=== PATIENT | male | born 1955 | race Caucasian/White ===

== ENCOUNTER 2022-03-25 12:21 | Observation (INO) | payer MEDICARE, SELFPAY ==
[2022-03-25] VITALS (10 sets, daily range): BP systolic 110–175; BP diastolic 51–87; PULSE 55–81; RESP 15–16; TEMP 36.6–37.1; O2SAT 95–99; BMI 27.2
--- NOTE | 2022-03-25 12:38 | W.ED.NEUROSD ---
HPI - Neuro Symptoms/Deficit General: Chief Complaint: Neuro Symptoms/Deficit Stated Complaint: Numbness/weakness in left arm Time Seen by Provider: 03/25/22 12:38 History of Present Illness: Mr. Yun is a 66-year-old gentleman without significant past medical history who presents to the emergency department due to left arm weakness and sensory changes. He was working yesterday and reached over to open a toolbox at approximately 4 PM when he realized that his fingers were not functioning like he expected. Additionally he had onset of a tingling/asleep feeling that starts about mid elbow and goes down towards the hands. Since that time which has persisted. He denies similar episodes in the past. No associated headache or neck pain. No other neurologic deficits that he appreciates. Intensity symptoms is moderate to severe. No other specific changes in health, exacerbating, or alleviating factors identified. Onset (ago): hour(s) Location: left arm History of same: No Severity: moderate Quality: numb, tingling and constant On Anticoagulants: No Associated symptoms: Reports weakness Review of Systems General: Reports: 10 or more systems reviewed and unremarkable except in HPI and below PFSH ED PFSH: Medical History (Updated 03/29/22 @ 13:29 by GITA Gee) Glaucoma Tibia/fibula fracture Family History Mother Lung cancer Social History Smoking and tobacco status: former smoker Additional social history: Very remote history of light smoking Physical Exam Const: COMMON NORMALS: patient oriented x3 and alert GENERAL APPEARANCE: cooperative and well developed HENMT: COMMON NORMALS: normocephalic and atraumatic HEAD & SCALP: normocephalic and atraumatic Eye: COMMON NORMALS: conjunctivae normal CONJUNCTIVA: Yes conjunctivae normal SCLERA: sclerae normal Neck/C-Spine: COMMON NORMALS: supple GENERAL: Yes trachea midline Resp: COMMON NORMALS: normal respiratory effort EFFORT & INSPECTION: Yes able to speak in complete sentences Cardio: COMMON NORMALS: regular rate and regular rhythm RATE: regular rate RHYTHM: regular rhythm GI: COMMON NORMALS: Soft to palpation PALPATION: Yes Soft to palpation and No Tenderness to palpation present (GI) PERCUSSION: normal to percussion Extremity: GENERAL: Yes normal exam except as noted and No edema Neuro: COMMON NORMALS: patient oriented x3, CN's II-XII intact bilaterally, moves all extremities and no focal motor deficits SENSORIUM/ORIENTATION: Yes alert and No Orientation impaired SENSORY EXAM: Yes extremities (Left upper extremity decreased sensation to light touch) Psych: COMMON NORMALS: mental status grossly normal and Normal thought process present THOUGHT PROCESS: Normal thought process present Course ED course: - Patient was seen and evaluated by me at bedside - Patient placed on cardiac monitors, IV access obtained - Initial evaluation notable for exam as above. - Labs and xrays personally interpreted by me. EKG notable for sinus bradycardia with no STEMI. - Patient outside tPA window - Labs notable for no acute hematologic or metabolic abnormalities to explain patient's symptoms. - Imaging notable for no lobar consolidation or pneumothorax. No acute abnormality identified on CT head without contrast - Upon serial reexamination after treatment the patient was similar - Based on patient history, evaluation, and testing as interpreted the most likely cause of the patient's condition is stroke symptoms - The results of ED evaluation were discussed with the patient including plan for admission due to requirement for level of care not available if discharged to prevent significant worsening/deterioration. - Admitting service was contacted and Dr Kellogg with the hospitalist service agreed to admit the patient - Patient was admitted without further deterioration or significant events. Note: Click bubbles or prepopulated gaming in note writing are used for assistance with data collection and billing and are inherently more limited than narrative and other text portions of this note. Please use narrative for additional clinical history and defer to narrative/free test for any case of contradictory information. If information appears in only free text or click bubble it should be considered present or absent as reported. Please contact note job specification writer for clarifications of clinical information or contradictory information. MDM is a brief summary, contradictory or erroneous seeming information should be clarified and full note should be reviewed. Vital Signs: Vital signs: Vital Signs Temperature 98.4 F 03/26/22 12:02 Pulse Rate 61 03/26/22 12:02 Respiratory Rate 17 03/26/22 12:02 Blood Pressure 124/81 03/26/22 12:02 Pulse Oximetry 95 03/26/22 12:02 MDM - Neuro Symptoms/Deficit Medical Decision Making 66-year-old gentleman presenting with left upper extremity sensory changes and weakness outside of tPA window. No obvious cause of symptoms identified on ED evaluation. Admitted for further stroke evaluation. Medical Records I reviewed the patient's medical records. Lab Data I reviewed the patient's lab results. : 03/25/22 14:11 03/25/22 14:[address] 03/25/22 12:42 IMPRESSION: No acute intracranial abnormality. Chest X-Ray 03/25/22 13:19 IMPRESSION: No acute findings. Duplex Scan Upper Extremity Artery 03/25/22 13:19 IMPRESSION: No acute findings. Chest CT 03/25/22 16:04 IMPRESSION: 1. Negative CT chest. No acute abnormality. 2. Small incidental right lower lobe subpleural pulmonary nodule. 3. For patients at low risk (minimal or absent history of smoking and of other known risk factors), no routine follow-up is indicated. For patients at high risk (history of smoking or of other known risk factors), consider optional CT Chest at 12 months. (Reference: Elaine) REFERENCES: Elaine Amaya, et al. Guidelines for Management of Incidental Pulmonary Nodules Detected on CT Images: From the Fleischner Society 2017. Radiology. 2017;284(1):228-243. Head MRI 03/25/22 16:04 IMPRESSION: 1. No acute intracranial abnormality. 2. Diffuse paranasal sinus disease. Head/Neck CTA 03/25/22 16:04 IMPRESSION: No large vessel stenosis or occlusion. IMPRESSION: No stenosis or occlusion. REFERENCES: NASCET CRITERIA. The degree of internal carotid artery stenosis is based on NASCET criteria. Normal is no stenosis. Mild is less than 50% stenosis. Moderate is 50-69% stenosis. Severe is 70% to 99% stenosis. Total occlusion is no detectable patent lumen. Laboratory Results WBC 8.2 10^3/uL (4.0-10.0) 03/25/22 14:11 RBC 5.17 10^6/uL (4.1-5.3) 03/25/22 14:11 Hgb 16.0 g/dL (11.7-16.6) 03/25/22 14:11 Hct 48.8 % (42.0-52.0) 03/25/22 14:11 MCV 94.4 fl (80-94) H 03/25/22 14:11 MCH 30.9 pg (28.0-34.0) 03/25/22 14:11 MCHC 32.8 g/dL (30.0-36.0) 03/25/22 14:11 RDW 12.7 % (12.1-15.1) 03/25/22 14:11 Plt Count 251 10^3/cmm (130-400) 03/25/22 14:11 MPV 9.8 fL (7.4-10.4) 03/25/22 14:11 Neut % (Auto) 63.4 % 03/25/22 14:11 Lymph % (Auto) 24.4 % 03/25/22 14:11 [place] % (Auto) 8.1 % 03/25/22 14:11 Eos % (Auto) 3.2 % 03/25/22 14:11 Baso % (Auto) 0.7 % 03/25/22 14:11 Neut # (Auto) 5.16 10^3/uL (1.8-7.7) 03/25/22 14:11 Lymph # (Auto) 2.0 10^3/uL (0.8-4.8) 03/25/22 14:11 [place] # (Auto) 0.7 10^3/uL (0.2-0.9) 03/25/22 14:11 Eos # (Auto) 0.3 10^3/uL (0.0-0.8) 03/25/22 14:11 Baso # (Auto) 0.1 10^3/uL (0.0-0.1) 03/25/22 14:11 Nucleated RBC % (auto) 0 % 03/25/22 14:11 Nucleated RBCs # 0.0 /100WBC 03/25/22 14:11 Sodium 140 mmol/L (136-145) 03/25/22 14:11 Potassium 4.6 mmol/L (3.5-5.1) 03/25/22 14:11 Chloride 105 mmol/L (98-107) 03/25/22 14:11 Carbon Dioxide 26 mmol/L (22-29) 03/25/22 14:11 Anion Gap 13.6 (5-19) 03/25/22 14:11 BUN 13 mg/dL (8-23) 03/25/22 14:11 Creatinine 0.7 mg/dL (0.7-1.2) 03/25/22 14:11 GFR Calculation 112.5 mL/min (90-130) 03/25/22 14:11 Glucose 103 mg/dL (65-115) 03/25/22 14:11 Estimat Average Glucose 108 03/25/22 14:11 Hemoglobin A1c 5.4 % (4.0-6.0) 03/25/22 14:11 Calculated Osmolality 290 mOsm/kg (285-295) 03/25/22 14:11 Calcium 9.3 mg/dL (8.5-10.5) 03/25/22 14:11 Total Bilirubin 0.8 mg/dL (0.15-1.2) 03/25/22 14:11 AST 12 U/L (0-40) 03/25/22 14:11 ALT 10 U/L (0-41) 03/25/22 14:11 Alkaline Phosphatase 125 IU/L (40-130) 03/25/22 14:11 NT-Pro-B Natriuret Pep 29 pg/mL (0-125) 03/25/22 14:11 Total Protein 7.4 g/dL (6.6-8.7) 03/25/22 14:11 Albumin 4.5 g/dL (3.5-5.2) 03/25/22 14:11 Globulin 2.9 g/dL (1.3-4.6) 03/25/22 14:11 Triglycerides 53 mg/dL (0-150) 03/25/22 14:11 Cholesterol 171 mg/dL (0-200) 03/25/22 14:11 LDL Cholesterol, Calc 117 mg/dL (50-129) 03/25/22 14:11 HDL Cholesterol 43 mg/dL (60-100) L 03/25/22 14:11 LDL/HDL Ratio 2.72 RATIO (0.00-3.22) 03/25/22 14:11 Cholesterol/HDL Ratio 3.98 mg/dL (1.0-5.00) 03/25/22 14:11 TSH 1.26 uIU/mL (0.27-4.20) 03/25/22 14:11 Discharge Plan Discharge Patient Disposition: Placed in Observation Admit Provider: Sunil Kellogg Clinical Impression: Stroke-like symptom Discharge Diet: Cardiac Discharge Activity: Increase activity as tolerated Coding Level of Care Code ED Planner Intern for Chg Fwd Exam Comprehensive
--- NOTE | 2022-03-25 12:42 | CTR_ITS ---
PROCEDURE INFORMATION: Exam: CT Head Without Contrast Exam date and time: 03/25/2022 1:11 PM Age: 66 years old Clinical indication: Weakness, extremity; Left; Additional info: Stroke like symptoms, L hand/arm sensory changes/weakness TECHNIQUE: Imaging protocol: Computed tomography of the head without contrast. Radiation optimization: All CT scans at this facility use at least one of these dose optimization techniques: automated exposure control; mA and/or kV adjustment per patient size (includes targeted exams where dose is matched to clinical indication); or iterative reconstruction. COMPARISON: No relevant prior studies available. RADIATION DOSE METRICS: Total DLP (mGy-cm): 938.56 FINDINGS: Brain: No hemorrhage. No edema. No significant white matter disease. No mass effect. Cerebral ventricles: No ventriculomegaly. Paranasal sinuses: Opacified maxillary and frontal sinuses and partially opacified ethmoid sinuses. Mastoid air cells: Visualized mastoid air cells are well aerated. Bones/joints: Unremarkable. No acute fracture. Soft tissues: Unremarkable. CT/CT head wo con* [id number] IMPRESSION: No acute intracranial abnormality.
--- NOTE | 2022-03-25 13:19 | USR_ITS ---
PROCEDURE INFORMATION: Exam: US Duplex Left Upper Extremity Arteries Exam date and time: 03/25/2022 2:16 PM Age: 66 years old Clinical indication: Pain; Other: Weakness and numbness; Arm, upper; Left; Additional info: Weakness, sensory changes, color difference, eval ischemia TECHNIQUE: Imaging protocol: Left Real-time ultrasound scan of the arteries of the left upper extremity with 2-D meeks scale, color Doppler flow and spectral waveform analysis. COMPARISON: No relevant prior studies available. FINDINGS: Left subclavian artery: No occlusion or significant stenosis. Normal waveform. Left axillary artery: No occlusion or significant stenosis. Normal waveform. Left brachial artery: No occlusion or significant stenosis. Normal waveform. Left radial artery: No occlusion or significant stenosis. Normal waveform. Left ulnar artery: No occlusion or significant stenosis. Normal waveform. Soft tissues: Unremarkable. US/[place] [id number] IMPRESSION: No acute findings.
--- NOTE | 2022-03-25 13:19 | XRR_ITS ---
PROCEDURE INFORMATION: Exam: XR Chest Exam date and time: 03/25/2022 1:42 PM Age: 66 years old Clinical indication: Dyspnea and other: Weakness; Additional info: Arm numbness/weakness TECHNIQUE: Imaging protocol: XR of the chest. Views: 1 view. COMPARISON: No relevant prior studies available. FINDINGS: Lungs: Linear scarring at the left lung base. No consolidation. Pleural spaces: No pleural effusion. No pneumothorax. Heart/Mediastinum: No cardiomegaly. Bones/joints: Visualized osseous structures are intact. XR/XR chest 1V portable [id number] IMPRESSION: No acute findings.
--- NOTE | 2022-03-25 13:20 | ECG_ITS ---
[facility] Test Date: 2022-03-25 Pat Name: Yosef Yun Department: Room: Gender: Male [employer] Project Manager: : 1955 Requested By: Joey Wolff Order Number: [id number] [place] MD: Lili Crook M.D. Measurements Intervals [place] Rate: 54 P: 16 SD: 157 QRS: 2 QRSD: 94 T: 38 QT: 419 QTc: 399 Interpretive Statements SINUS BRADYCARDIA No previous ECG available for comparison Electronically Signed On 03-26-2022 13:27:11 CDT by Lili Crook M.D. [id number]
[2022-03-25 14:22] LABS: Basophils # 0.1 10^3/uL (0.0-0.1); Basophils % 0.7 %; Eosinophils # 0.3 10^3/uL (0.0-0.8); Eosinophils % 3.2 %; Hematocrit 48.8 % (42.0-52.0); Lymphocytes % 24.4 %; Mean Corpuscular HGB Conc 32.8 g/dL (30.0-36.0); Mean Corpuscular Hemoglobin 30.9 pg (28.0-34.0); Mean Corpuscular Volume 94.4 fl (80-94); Mean Platelet Volume 9.8 fL (7.4-10.4); Monocytes # 0.7 10^3/uL (0.2-0.9); Monocytes % 8.1 %; Neutrophils # 5.16 10^3/uL (1.8-7.7); Neutrophils % 63.4 %; Nucleated Red Blood Cells % 0 %; Platelet Count 251 10^3/cmm (130-400); Red Blood Count 5.17 10^6/uL (4.1-5.3); Red Cell Distribution Width 12.7 % (12.1-15.1); White Blood Count 8.2 10^3/uL (4.0-10.0)
[2022-03-25 14:53] LABS: Alanine Aminotransferase 10 U/L (0-41); Albumin Level 4.5 g/dL (3.5-5.2); Alkaline Phosphatase 125 IU/L (40-130); Anion Gap 13.6 (5-19); Aspartate Amino Transferase 12 U/L (0-40); Blood Urea Nitrogen 13 mg/dL (8-23); Calcium 9.3 mg/dL (8.5-10.5); Carbon Dioxide 26 mmol/L (22-29); Chloride 105 mmol/L (98-107); Globulin 2.9 g/dL (1.3-4.6); Glomerular Filtration Rate 112.5 mL/min (90-130); Glucose 103 mg/dL (65-115); NT Pro B Type Natriuretic Pept 29 pg/mL (0-125); Osmolality Calculated 290 mOsm/kg (285-295); Potassium 4.6 mmol/L (3.5-5.1); Sodium 140 mmol/L (136-145); Thyroid Stimulating Hormone 1.26 uIU/mL (0.27-4.20); Total Bilirubin 0.8 mg/dL (0.15-1.2); Total Protein 7.4 g/dL (6.6-8.7)
--- NOTE | 2022-03-25 15:37 | P.HP_ITS ---
Providers/Chief Complaint Admitting Physician: Sunil Kellogg Chief Complaint: Numbness/weakness in left arm History of Present Illness Yosef Yun is a 66 year old male with a past medical history significant for glaucoma who presents to the emergency department with strokelike symptoms. Patient reports he was in his usual state of health until yesterday when he developed left hand weakness and tingling. States that he was working on a car and found that his left hand was not working as it should. He endorses weakness, numbness, and tingling sensation in his left hand. He denies prior episodes of this. He denies other focal areas of weakness or sensation changes. He denies slurred speech. Denies dysarthria. Denies facial droop. Denies prior history of stroke or TIA. Denies history of hypertension, hyperlipidemia, or type 2 diabetes mellitus. Denies family history of stroke. He reports that symptoms have improved somewhat since then but his weakness and his left hand is still mildly present. He says he does have some numbness present as well. Patient reports that his blood pressure was markedly different in his left upper versus right upper arms at the urgent care. He also states that the coloration in his left arm is markedly paler in the coloration in his right arm. States that this is new for him. Review of Systems Narrative: A complete review of systems was obtained and is negative except as stated in HPI. Medications/Allergies Home Medications Medication Instructions Recorded Confirmed Last Taken Type latanoprost 0.005 % eye drops 1 drp OPHTHALMIC (EYE) BEDTIME 03/25/22 03/25/22 03/24/22 History timolol maleate 0.5 % eye drops 1 drp OPHTHALMIC (EYE) BID 03/25/22 03/25/22 03/25/22 History Allergies Allergy/AdvReac Type Severity Reaction Status Date / Time ampicillin Allergy ADR-Itching Verified 03/25/22 12:30 PFSH Acute PFSH: Medical History (Updated 03/25/22 @ 15:58 by Sunil Kellogg MD) Glaucoma Tibia/fibula fracture Family History (Updated 03/25/22 @ 15:52 by Sunil Kellogg MD) Mother Lung cancer Social History Smoking and tobacco status: former smoker Additional social history: Very remote history of light smoking Vitals/I&O/Wt Last Vital Signs Temp 97.8 F 03/25/22 12:26 Pulse 55 L 03/25/22 12:26 Resp 16 03/25/22 12:26 BP 175/51 03/25/22 12:26 Pulse Ox 97 03/25/22 12:26 Weight last 48 hrs Weight 96.162 kg Physical Exam Narrative: General: Patient is awake and alert. Head: Normocephalic. Atraumatic. EOM intact. Neck: No JVD. Cardiovascular: RRR. No gallops. No murmurs. No peripheral edema. Lungs: Clear to auscultation, no use of accessory muscles, no crackles or wheezes. Skin: No jaundice. No rashes. Abdomen: Normal bowel sounds, abdomen soft and nontender. Genito Urinary: Genital exam not performed since complaints not related. Rectal: Rectal exam not performed since no symptoms indicated blood loss. Extremeties: No cyanosis or clubbing. Musculoskeletal: LUE 4+/5 strenght. Other extremities 5/5 strength, normal range of motion, no swollen or erythematous joints. Neurological: Moves all 4 extremities. No myoclonus. Data : 03/25/22 14:11 03/25/22 14:11 A&P Assessment and plan (1) Stroke-like symptom: Patient presents with focal neurological deficits concerning for TIA versus CVA versus nerve impingement Plain head CT negative for acute hemorrhage. Telemetry monitoring to evaluate for atrial fibrillation. MRI head CTA head/neck Neurochecks Aspiration and fall precautions Stroke education PT/OT/ST A1c and lipid for risk ratification Start aspirin and Plavix Start high intensity statin Transthoracic echocardiogram ordered Status: Acute (2) Abnormal blood pressure: Physical exam w/ pale left upper extremity of unclear significance. Reported asymmetric blood pressure Pulses present in LUE CT chest w/ IV contrast Start IVF due to contrast exposure Status: Acute (3) Glaucoma: Continue home eyedrops Status: Acute Plan DVT prophylaxis: Lovenox Attestations Medical Necessity Statement*: Patient's presents with strokelike symptoms with hospitalization not expected to cross 2 midnights. Coding Level of Care Code Acute Still Worker Helper for David Godwin Diagnoses Stroke-like symptom R29.90 Glaucoma H40.9 Abnormal blood pressure
--- NOTE | 2022-03-25 16:04 | USCV_ITS ---
Yosef Yun Age: 66 Gender: M : 1955 Exam Date: 03/25/2022 16:15 Ordering Phys: Sunil Kellogg MD Technologist: DANUTA [place] [facility] [place]ication: ECHO WITH BUBBLES TO EVALUATE FOR PFO BP: 123 / 84 HR: 55 Rhythm: Sinus Technical Quality: Adequate MEASUREMENTS (Male / Female) Normal Values 2D ECHO LV Diastolic Diameter PLAX 5.5 cm 4.2 - 5.9 / 3.9 - 5.3 cm LV Systolic Diameter PLAX 4.0 cm IVS Diastolic Thickness 1.2 cm 0.6 - 1.0 / 0.6 - 0.9 cm IVS Systolic Thickness 2.0 cm LVPW Diastolic Thickness 1.3 cm 0.6 - 1.0 / 0.6 - 0.9 cm LVPW Systolic Thickness 1.6 cm LVOT Diameter 2.0 cm LV Ejection Fraction 2D Teich 51.2 % LV Ejection Fraction MOD 2C 55.8 % LV Ejection Fraction 2C AL 55.8 % LA Diameter 3.2 cm LA Width 3.5 cm LA Height 5.1 cm RA Width 4.0 cm RA Height 4.3 cm Aorta at Sinotubular Diameter 2.3 cm IVC Diameter 1.6 cm M-MODE Aortic Annulus Diameter 3.4 cm LA Ao Ratio MM 0.9 MV E Point Septal Separation 0.6 cm DOPPLER AV Peak Velocity 91.3 cm/s LVOT Peak Velocity 75.0 cm/s AV Area Cont Eq vti 2.6 cm squared AV Area Cont Eq pk 2.6 cm squared MV Peak Velocity 89.0 cm/s MV Area PHT 3.9 cm squared Mitral E to A Ratio 1.1 MV E' Velocity 41.5 cm/s Mitral E to MV E' Ratio 6.6 Mitral E to LV E' Lateral Ratio 5.9 Mitral E to LV E' Septal Ratio 7.5 TR Peak Velocity 151.0 cm/s TR Peak Gradient 9.1 mmHg TR Mean Velocity 112.2 cm/s TR Mean Gradient 5.4 mmHg TR Velocity Time Integral 42.1 cm TV Peak E Velocity 45.0 cm/s Right Atrial Pressure 3.0 mmHg Pulmonary Artery Systolic Pressu 12.1 mmHg PV Peak Velocity 64.0 cm/s RV Acceleration Time 0.1 s RV Ejection Time 0.4 s RV AcT/ET 0.3 FINDINGS Left Ventricle Normal left ventricular size, systolic function and wall thickness, with no regional wall motion abnormalities. Left ventricular ejection fraction is estimated at 55-60 %. Normal diastolic function. Right Ventricle Normal right ventricular size and systolic function. RVSP could not be calculated due to incomplete tricuspid regurgitation velocity profile. Right Atrium Normal right atrial size. Left Atrium Normal left atrial size. No evidence of intracardiac shunt by agitated saline or bubble study. Mitral Valve Structurally normal mitral valve. No mitral valve stenosis. No mitral valve regurgitation. Aortic Valve Structurally normal trileaflet aortic valve. No aortic valve stenosis. No aortic valve regurgitation. Tricuspid Valve Structurally normal tricuspid valve. No tricuspid valve stenosis. Trace tricuspid valve regurgitation. Pulmonic Valve Structurally normal pulmonic valve. No pulmonary valve stenosis. Trace pulmonary valve regurgitation. Pericardium No pericardial effusion. Aorta Normal size aortic root and proximal ascending aorta. Normal- sized inferior vena cava. CONCLUSIONS 1. Normal left ventricular size, systolic function and wall thickness, with no regional wall motion abnormalities. Left ventricular ejection fraction is estimated at 55-60 %. Normal diastolic function. 2. No evidence of intracardiac shunt by agitated saline or bubble study. 3. No significant valvular abnormality. 4. No prior similar studies to compare. Lili Crook MD (Electronically Signed) Final Date: 26 Mar 2022 12:51 S
--- NOTE | 2022-03-25 16:04 | MRR_ITS ---
PROCEDURE INFORMATION: Exam: MR Head Without Contrast Exam date and time: 03/25/2022 7:33 PM Age: 66 years old Clinical indication: Weakness, extremity; Left; Additional info: Stroke like symptoms, left arm weakness, aching and loss of use of fingers TECHNIQUE: Imaging protocol: MR of the head without contrast. COMPARISON: CT head wo con* [id number] 03/25/2022 1:11 PM FINDINGS: Brain: Click cerebral moderate no intracranial hemorrhage. No restricted diffusion in the brain. No significant white matter lesion. Young matter and white matter differentiation is unremarkable. No mass effect. No midline shift. No susceptibility artifact within the brain parenchyma. Cerebral ventricles: Normal. No ventriculomegaly. Bones/joints: Unremarkable. Paranasal sinuses: Diffuse mucosal thickening and fluid throughout the paranasal sinuses. Mastoid air cells: Normal as visualized. No mastoid effusion. Orbital cavities: Unremarkable. Soft tissues: Unremarkable. MR/MR head wo con* [id number] IMPRESSION: 1. No acute intracranial abnormality. 2. Diffuse paranasal sinus disease.
--- NOTE | 2022-03-25 16:04 | CTR_ITS ---
PROCEDURE INFORMATION: Exam: CT Angiography Head With Contrast, Arteriography Exam date and time: 03/25/2022 4:52 PM Age: 66 years old Clinical indication: Patient HX: C/O lue weakness; Additional info: Stroke symptoms in lue, CT angiogram cervical and intracranial vessels TECHNIQUE: Imaging protocol: Computed tomography angiography of the head with contrast. Exam focused on the arteries. 3D rendering (Not supervised by radiologist): MIP and/or 3D reconstructed images were created by the technologist. Radiation optimization: All CT scans at this facility use at least one of these dose optimization techniques: automated exposure control; mA and/or kV adjustment per patient size (includes targeted exams where dose is matched to clinical indication); or iterative reconstruction. Contrast material: OMNI 300; Contrast volume: 95 ml; Contrast route: INTRAVENOUS (IV); COMPARISON: CT head wo con* [id number] 03/25/2022 1:11 PM RADIATION DOSE METRICS: Total DLP (mGy-cm): 2261.98 FINDINGS: ANTERIOR CIRCULATION: Right internal carotid artery: Unremarkable. Intracranial segment is patent with no significant stenosis. No aneurysm. Right middle cerebral artery: Unremarkable. No occlusion or significant stenosis. No aneurysm. Right anterior cerebral artery: Unremarkable. No occlusion or significant stenosis. No aneurysm. Left internal carotid artery: Unremarkable. Intracranial segment is patent with no significant stenosis. No aneurysm. Left middle cerebral artery: Unremarkable. No occlusion or significant stenosis. No aneurysm. Left anterior cerebral artery: Unremarkable. No occlusion or significant stenosis. No aneurysm. POSTERIOR CIRCULATION: Right vertebral artery: Unremarkable. No occlusion or significant stenosis. No aneurysm. Left vertebral artery: Unremarkable. No occlusion or significant stenosis. No aneurysm. Basilar artery: Unremarkable. No occlusion or significant stenosis. No aneurysm. Right posterior cerebral artery: Unremarkable. No occlusion or significant stenosis. No aneurysm. Left posterior cerebral artery: Unremarkable. No occlusion or significant stenosis. No aneurysm. Brain: No definite mass, mass effect, or midline shift. Cerebral ventricles: No ventriculomegaly. Bones/joints: Unremarkable. No acute fracture. Soft tissues: Unremarkable. PROCEDURE INFORMATION: Exam: CT Angiography Neck With Contrast Exam date and time: 03/25/2022 4:52 PM Age: 66 years old Clinical indication: Patient HX: C/O lue weakness; Additional info: Stroke symptoms in lue, CT angiogram cervical and intracranial vessels TECHNIQUE: Imaging protocol: Computed tomography angiography of the neck with contrast. 3D rendering (Not supervised by radiologist): MIP and/or 3D reconstructed images were created by the technologist. Radiation optimization: All CT scans at this facility use at least one of these dose optimization techniques: automated exposure control; mA and/or kV adjustment per patient size (includes targeted exams where dose is matched to clinical indication); or iterative reconstruction. Contrast material: OMNI 300; Contrast volume: 95 ml; Contrast route: INTRAVENOUS (IV); COMPARISON: CT head wo con* [id number] 03/25/2022 1:11 PM RADIATION DOSE METRICS: Total DLP (mGy-cm): 2261.98 FINDINGS: Right common carotid artery: No stenosis. No dissection or occlusion. Right internal carotid artery: No stenosis of the extracranial segment. No dissection or occlusion. Right external carotid artery: No occlusion or stenosis of the origin. Left common carotid artery: No stenosis. No dissection or occlusion. Left internal carotid artery: No stenosis of the extracranial segment. No dissection or occlusion. Left external carotid artery: No occlusion or stenosis of the origin. Right vertebral artery: No stenosis. No dissection or occlusion. Left vertebral artery: No stenosis. No dissection or occlusion. Soft tissues: Normal. No significant soft tissue swelling. Bones/joints: No acute fracture. CT/CT angio headneck* [id number] IMPRESSION: No large vessel stenosis or occlusion. IMPRESSION: No stenosis or occlusion. REFERENCES: NASCET CRITERIA. The degree of internal carotid artery stenosis is based on NASCET criteria. Normal is no stenosis. Mild is less than 50% stenosis. Moderate is 50-69% stenosis. Severe is 70% to 99% stenosis. Total occlusion is no detectable patent lumen.
--- NOTE | 2022-03-25 16:04 | CTR_ITS ---
PROCEDURE INFORMATION: Exam: CT Chest With Contrast; Diagnostic Exam date and time: 03/25/2022 4:56 PM Age: 66 years old Clinical indication: Patient HX: Lue weakness and unequal BP; Additional info: Unequal blood pressure in upper extremities TECHNIQUE: Imaging protocol: Diagnostic computed tomography of the chest with contrast. Radiation optimization: All CT scans at this facility use at least one of these dose optimization techniques: automated exposure control; mA and/or kV adjustment per patient size (includes targeted exams where dose is matched to clinical indication); or iterative reconstruction. Contrast material: OMNI 300; Contrast volume: 95 ml; Contrast route: INTRAVENOUS (IV); COMPARISON: CR (CHEST, ) 03/25/2022 1:42 PM RADIATION DOSE METRICS: Total DLP (mGy-cm): 787.01 FINDINGS: Lungs: 4 mm noncalcified posterolateral right lower lobe subpleural pulmonary nodule with triangular-shaped on axial series 2, image 46. Negative for space consolidation. Negative for endobronchial obstruction. No peripheral honeycombing. No bronchiectasis. Pleural spaces: Unremarkable. No pneumothorax. No pleural effusion. Heart: Unremarkable. No cardiomegaly. No pericardial effusion. Lymph nodes: Unremarkable. No enlarged lymph nodes. Vasculature: Unremarkable. No aortic aneurysm. No stenosis in the great vessel origins. Bones/joints: Unremarkable. No acute fracture. Soft tissues: Unremarkable. CT/CT chest w con* [id number] IMPRESSION: 1. Negative CT chest. No acute abnormality. 2. Small incidental right lower lobe subpleural pulmonary nodule. 3. For patients at low risk (minimal or absent history of smoking and of other known risk factors), no routine follow-up is indicated. For patients at high risk (history of smoking or of other known risk factors), consider optional CT Chest at 12 months. (Reference: Elaine) REFERENCES: Elaine H, et al. Guidelines for Management of Incidental Pulmonary Nodules Detected on CT Images: From the Fleischner Society 2017. Radiology. 2017;284(1):228-243.
[2022-03-25] MEDS: iohexol 300 mg/mL 100 mL Btl IV (16:57)
[2022-03-25 18:07] LABS: Chol HDL Ratio 3.98 mg/dL (1.0-5.00); Cholesterol 171 mg/dL (0-200); HDL Cholesterol 43 mg/dL (60-100); LDL Cholesterol Calculated 117 mg/dL (50-129); LDL HDL Ratio 2.72 RATIO (0.00-3.22); Triglycerides 53 mg/dL (0-150)
[2022-03-25] MEDS: aspirin 81 mg EC Tablet PO (18:20)
[2022-03-25] MEDS: clopidogrel 300 mg Tablet PO (18:20)
[2022-03-25] MEDS: dextrose 5%-sod chloride 0.45% 1,000 ML 100 ML IV (18:21)
[2022-03-25] MEDS: timolol 0.5% Op Soln 5 mL Btl 1 DROP EYE-BOTH (18:56)
[2022-03-25 20:15] LABS: Estmated Average Glucose 108; Hemoglobin A1C 5.4 % (4.0-6.0)
[2022-03-25] MEDS: enoxaparin 40 mg/0.4 mL Syringe SUBCUT (21:24)
[2022-03-25] MEDS: atorvastatin 40 mg Tablet PO (21:24)
[2022-03-25] MEDS: latanoprost 0.005% Op Soln 2.5 mL Btl 1 DROP EYE-BOTH (21:25)
[2022-03-26] MEDS: dextrose 5%-sod chloride 0.45% 1,000 ML 100 ML IV (02:17)
[2022-03-26 02:45] VITALS: BP 120/68; BP 135/82; PULSE 62; PULSE 78; RESP 16; TEMP 36.6; TEMP 36.9; O2SAT 95
[2022-03-26 06:00] VITALS: PULSE 72; RESP 18; O2SAT 97
[2022-03-26 08:39] VITALS: BP 124/79; PULSE 74; RESP 16; TEMP 36.3; O2SAT 94
[2022-03-26] MEDS: timolol 0.5% Op Soln 5 mL Btl 1 DROP EYE-BOTH (09:56)
[2022-03-26] MEDS: clopidogrel 75 mg Tablet PO (09:57)
[2022-03-26] MEDS: aspirin 81 mg EC Tablet PO (09:57)
--- NOTE | 2022-03-26 09:58 | PC.OT ---
ADDRESSED OT EVALUATION ORDER THIS MORNING. PER PATIENT AND NURSING, PATIENT IS DISCHARGING TODAY. PRESENT AND PATIENT AND SPOUSE REPORT NO CONCERNS FOR SAFETY UPON DISCHARGE. INFORMAL SCREENING PERFORMED, NO PERFORMANCE DEFICITS NOTED. MMT, COORDINATION, VISION, ROM WFL AND PATIENT REPORTS NO RESIDUAL SIGNS AND SYMPTOMS (NUMBNESS, WEAKNESS, TINGLING IN UE AND HAND). PATIENT DEMONSTRATED INDEPENDENT TRANSFERS AND WAS ABLE TO TOUCH TOES IN STANDING.
--- NOTE | 2022-03-26 10:35 | P.DS_ITS ---
Discharge Providers Date of Admission: 03/25/22 15:17 Date of Discharge: March 26, 2022 Attending Provider at Admission: Sunil Kellogg MD Attending Provider at Discharge: Sunil Kellogg MD Consults: None Diagnoses at Discharge Discharge Diagnosis (1) Stroke-like symptom: Status: Acute (2) Abnormal blood pressure: Status: Acute (3) Glaucoma: Status: Acute Reason for Visit Reason for Visit: Numbness/weakness in left arm Hospital Course Hospital Course Yosef Yun is a 66 year old male with a past medical history significant for glaucoma who presents to the emergency department with strokelike symptoms.? Patient reports he was in his usual state of health until yesterday when he developed left hand weakness and tingling. Head CT, head and neck angiogram and head MRI were negative for CVA. Results from transthoracic echocardiogram with bubble study are pending at time of discharge. Patient to follow up with primary care provider to review results from TTE. Symptoms resolved prior to discharge. Presentaiton consistent with transient ischemic attack. He is being treated with dual antiplatelet therapy for 21 days followed by aspirin. Lipid panel mildly abnormal, will defer decision to start statin to primary care provider. Patient complained of markedly different blood pressures in upper extremities for which chest ct with contrast was obtain and negative for acute findings. Patient is to follow up with primary care provider in 4-7 days for further management. Physical Exam Narrative: General: Patient is awake and alert. Head: Normocephalic. Atraumatic. EOM intact. Neck: No JVD. Cardiovascular: RRR. No gallops. No murmurs. No peripheral edema. Lungs: Clear to auscultation, no use of accessory muscles, no crackles or wheezes. Skin: No jaundice. No rashes. Abdomen: Normal bowel sounds, abdomen soft and nontender. Genito Urinary: Genital exam not performed since complaints not related. Rectal: Rectal exam not performed since no symptoms indicated blood loss. Extremeties: No cyanosis or clubbing. Musculoskeletal: 5/5 strength, normal range of motion, no swollen or erythematous joints. Neurological: Moves all 4 extremities. No myoclonus. Discharge Data Studies Completed and Pending Completed Studies During Hospitalization Category Date Time Status CT angio headneck* [id number] Stat Cat Scan 03/25/22 16:[address] chest w con* [id number] Stat Cat Scan 03/25/22 16:[address] head wo con* [id number] Stat Cat Scan 03/25/22 12:42 Completed XR chest 1V portable [id number] Urgent Exams 03/25/22 13:19 Completed MR head wo con* [id number] Stat MRI 03/25/22 16:04 Completed US arterial duplex upper extremity LT [CV arterial Ultrasound 03/25/22 13:19 [place] [id number]] Stat Pending at discharge Category Date Time Status CV. echo w/w bubble cont [id number] Stat Ultrasound 03/25/22 16:04 Taken Radiology Impressions Head CT 03/25/22 12:42 IMPRESSION: No acute intracranial abnormality. Chest X-Ray 03/25/22 13:19 IMPRESSION: No acute findings. Duplex Scan Upper Extremity Artery 03/25/22 13:19 IMPRESSION: No acute findings. Chest CT 03/25/22 16:04 IMPRESSION: 1. Negative CT chest. No acute abnormality. 2. Small incidental right lower lobe subpleural pulmonary nodule. 3. For patients at low risk (minimal or absent history of smoking and of other known risk factors), no routine follow-up is indicated. For patients at high risk (history of smoking or of other known risk factors), consider optional CT Chest at 12 months. (Reference: Elaine) REFERENCES: Ariadnahoghulam H, et al. Guidelines for Management of Incidental Pulmonary Nodules Detected on CT Images: From the Fleischner Society 2017. Radiology. 2017;284(1):228-243. Head MRI 03/25/22 16:04 IMPRESSION: 1. No acute intracranial abnormality. 2. Diffuse paranasal sinus disease. Head/Neck CTA 03/25/22 16:04 IMPRESSION: No large vessel stenosis or occlusion. IMPRESSION: No stenosis or occlusion. REFERENCES: NASCET CRITERIA. The degree of internal carotid artery stenosis is based on NASCET criteria. Normal is no stenosis. Mild is less than 50% stenosis. Moderate is 50-69% stenosis. Severe is 70% to 99% stenosis. Total occlusion is no detectable patent lumen. Laboratory Results WBC 8.2 10^3/uL (4.0-10.0) 03/25/22 14:11 RBC 5.17 10^6/uL (4.1-5.3) 03/25/22 14:11 Hgb 16.0 g/dL (11.7-16.6) 03/25/22 14:11 Hct 48.8 % (42.0-52.0) 03/25/22 14:11 MCV 94.4 fl (80-94) H 03/25/22 14:11 MCH 30.9 pg (28.0-34.0) 03/25/22 14:11 MCHC 32.8 g/dL (30.0-36.0) 03/25/22 14:11 RDW 12.7 % (12.1-15.1) 03/25/22 14:11 Plt Count 251 10^3/cmm (130-400) 03/25/22 14:11 MPV 9.8 fL (7.4-10.4) 03/25/22 14:11 Neut % (Auto) 63.4 % 03/25/22 14:11 Lymph % (Auto) 24.4 % 03/25/22 14:11 Prentiss % (Auto) 8.1 % 03/25/22 14:11 Eos % (Auto) 3.2 % 03/25/22 14:11 Baso % (Auto) 0.7 % 03/25/22 14:11 Neut # (Auto) 5.16 10^3/uL (1.8-7.7) 03/25/22 14:11 Lymph # (Auto) 2.0 10^3/uL (0.8-4.8) 03/25/22 14:11 Prentiss # (Auto) 0.7 10^3/uL (0.2-0.9) 03/25/22 14:11 Eos # (Auto) 0.3 10^3/uL (0.0-0.8) 03/25/22 14:11 Baso # (Auto) 0.1 10^3/uL (0.0-0.1) 03/25/22 14:11 Nucleated RBC % (auto) 0 % 03/25/22 14:11 Nucleated RBCs # 0.0 /100WBC 03/25/22 14:11 Sodium 140 mmol/L (136-145) 03/25/22 14:11 Potassium 4.6 mmol/L (3.5-5.1) 03/25/22 14:11 Chloride 105 mmol/L (98-107) 03/25/22 14:11 Carbon Dioxide 26 mmol/L (22-29) 03/25/22 14:11 Anion Gap 13.6 (5-19) 03/25/22 14:11 BUN 13 mg/dL (8-23) 03/25/22 14:11 Creatinine 0.7 mg/dL (0.7-1.2) 03/25/22 14:11 GFR Calculation 112.5 mL/min (90-130) 03/25/22 14:11 Glucose 103 mg/dL (65-115) 03/25/22 14:11 Estimat Average Glucose 108 03/25/22 14:11 Hemoglobin A1c 5.4 % (4.0-6.0) 03/25/22 14:11 Calculated Osmolality 290 mOsm/kg (285-295) 03/25/22 14:11 Calcium 9.3 mg/dL (8.5-10.5) 03/25/22 14:11 Total Bilirubin 0.8 mg/dL (0.15-1.2) 03/25/22 14:11 AST 12 U/L (0-40) 03/25/22 14:11 ALT 10 U/L (0-41) 03/25/22 14:11 Alkaline Phosphatase 125 IU/L (40-130) 03/25/22 14:11 NT-Pro-B Natriuret Pep 29 pg/mL (0-125) 03/25/22 14:11 Total Protein 7.4 g/dL (6.6-8.7) 03/25/22 14:11 Albumin 4.5 g/dL (3.5-5.2) 03/25/22 14:11 Globulin 2.9 g/dL (1.3-4.6) 03/25/22 14:11 Triglycerides 53 mg/dL (0-150) 03/25/22 14:11 Cholesterol 171 mg/dL (0-200) 03/25/22 14:11 LDL Cholesterol, Calc 117 mg/dL (50-129) 03/25/22 14:11 HDL Cholesterol 43 mg/dL (60-100) L 03/25/22 14:11 LDL/HDL Ratio 2.72 RATIO (0.00-3.22) 03/25/22 14:11 Cholesterol/HDL Ratio 3.98 mg/dL (1.0-5.00) 03/25/22 14:11 TSH 1.26 uIU/mL (0.27-4.20) 03/25/22 14:11 Vitals Last Vital Signs Temp 97.4 F L 03/26/22 08:39 Pulse 74 03/26/22 08:39 Resp 16 03/26/22 08:39 BP 124/79 03/26/22 08:39 Pulse Ox 94 03/26/22 08:39 Discharge Plan Discharge Patient Disposition: Home Condition: Stable Prescriptions: New clopidogrel 75 mg Tablet 75 mg PO DAILY 20 Days Qty: 20 0RF aspirin 81 mg Tablet,Delayed Release (Dr/Ec) 81 mg PO DAILY Qty: 30 0RF Continued latanoprost 0.005 % drops 1 drp ophthalmic (eye) BEDTIME 0RF timolol maleate 0.5 % drops 1 drp ophthalmic (eye) BID 0RF Discharge Orders: Discharge Order (Routine); Ordered 03/26/22 Ordered By: Sunil Kellogg Referrals: [facility] [Other] [facility] PROVID[facility] [Provider Group] - 4-7 days Discharge Diet: Cardiac Discharge Activity: Increase activity as tolerated Patient Instructions: Opioid Safety Discharge Attestations Time Spent in Discharge Care*: greater than 30 min Quality Metrics Clinical Quality Measures [ No reported AMI, CVA or VTE this stay] Coding Level of Care Code Acute Chg FW DC note Diagnoses Stroke-like symptom R29.90 Abnormal blood pressure Glaucoma H40.9
[2022-03-26 11:52] VITALS: BP 124/81; PULSE 61; RESP 17; TEMP 36.9; O2SAT 95
[2022-03-26 12:02] VITALS: BP 124/81; PULSE 61; RESP 17; TEMP 36.9; O2SAT 95
--- NOTE | 2022-03-26 13:25 | PC.PT ---
Attempted PT evaluation, patient states no needs,, relates recent testing by occupational therapist, patient states independent ambulation in room without device or difficulty, declines PT evaluation due to feeling he has no needs.
== END 2022-03-26 12:15 | disposition home or self-care (01) ==
LOC: ER 15:17 → MEDSURG 15:49
PROVIDERS: Admitting Provider Internal Medicine; Emergency Provider Emergency Medicine; Visit Provider Internal Medicine
DX: R29.90 Unspecified symptoms and signs involving the nervous system (principal); H40.9 Unspecified glaucoma; Z87.891 Personal history of nicotine dependence
CPT/HCPCS: 70450; 70496; 70498; 70551; 71045; 71260; 80053; 80061; 83036; 83880; 84443; 85025; 92523; 92610; 93005; 93931; 96372; 99285; C8929; G0378; J1650; J7799; Q9967

== ENCOUNTER → 2022-03-29 13:13 | Outpatient (BNVA) | payer MEDICARE, SELFPAY | PROVIDERS: Visit Provider Surgery | DX: K40.90 Unilateral inguinal hernia, without obstruction or gangrene, not specified as recurrent (principal) | CPT/HCPCS: 99203 ==

== ENCOUNTER 2022-04-24 06:00 | Day surgery (SDC) | payer MEDICARE, SELFPAY ==
[2022-04-21 11:15] VITALS: BMI 27.2
[2022-04-24] VITALS (7 sets, daily range): BP systolic 112–124; BP diastolic 64–89; PULSE 51–84; RESP 16–18; TEMP 36.1–36.8; O2SAT 94–98
--- NOTE | 2022-04-24 06:09 | W.PM.OPSUD ---
Surgery/Procedure H&P Update DATE OF PROCEDURE: April 24, 2022 DATE H&P PERFORMED: 03/29/22 H&P UPDATE INFORMATION: I have reviewed H&P completed within last 30 days, I have examined patient prior to procedure and No changes to prior documentation PREOP DIAGNOSIS: Right inguinal hernia PRIMARY INDICATION FOR PROCEDURE: The same PLANNED PROCEDURE: Operation Date: 04/24/22 07:00 Proposed Procedures p lap right inguinal hernia w/ msh poss open 11771/K40.90(Right) - Catalino Higgins MD
[2022-04-24] MEDS: sodium chloride 0.9% 1,000 ML 30 ML IV (06:48)
[2022-04-24] MEDS: acetaminophen 1,000 MG/100 ML PIGGYBACK 400 MG IV (06:50)
[2022-04-24] MEDS: heparin 5,000 unit/mL INJ 1 mL 2000 UNIT SUBCUT (06:52)
--- NOTE | 2022-04-24 06:55 | ANES.PREANE2 ---
Pre-Anesthetic Assessment Height/Weight: Height 1.88 m Weight 96.162 kg Temp Pulse Resp BP Pulse Ox 98.3 F 84 18 116/75 94 04/24/22 06:13 04/24/22 06:13 04/24/22 06:13 04/24/22 06:13 04/24/22 06:13 Preop Diagnosis: Right inguinal hernia Operation Date: 04/24/22 07:00 Proposed Procedures p lap right inguinal hernia w/ msh poss open 31916/K40.90(Right) - Catalino Higgins MD Familial anesthetic complications: None Was Beta Anshu taken within 24 hours: N/A Was Clonidine taken within 24 hours: N/A Last intake: Intake Last Liquid Date 04/23/22 Last Liquid Time 20:00 Last Solid Date 04/23/22 Last Solid Time 20:00 Social No alcohol and No tobacco Exam alert, oriented x 3, clear to auscultation bilaterally and regular rate & rhythm glaucoma Airway Submandibular: within normal limits Cervical ROM: within normal limits Mallampati: Class II Dentition: chipped Comments: Comments: Poor dentition, missing several, large gagnon Anesthetic Plan ASA status: 2 Anesthesia: General Medications/Allergies Home Medications Medication Instructions Recorded Confirmed Last Taken Type latanoprost 0.005 % eye drops 1 drp OPHTHALMIC (EYE) BEDTIME 03/25/22 04/24/22 04/23/22 History timolol maleate 0.5 % eye drops 1 drp OPHTHALMIC (EYE) BID 03/25/22 04/24/22 04/23/22 History aspirin 81 mg tablet,delayed 81 mg PO DAILY #30 tab 03/26/22 04/21/22 Unknown Rx release Allergies Allergy/AdvReac Type Severity Reaction Status Date / Time ampicillin Allergy ADR-Itching Verified 03/31/22 10:16 Current Medications Generic Name Dose Route Start Last Admin Trade Name Freq PRN Reason Stop Dose Admin Sodium Chloride 1,000 mls @ 30 mls/hr 04/24/22 06:15 04/24/22 06:48 Sodium Chloride 0.9% IV 04/25/22 06:14 30 mls/hr .Q24H JULISSA Administration PFSH Anesthesia Medical History Glaucoma Tibia/fibula fracture Family History Mother Lung cancer Social History Smoking and tobacco status: former smoker Additional social history: Very remote history of light smoking Data Anesthesia Cardiac Studies: Echocardiogram 03/25/22
[2022-04-24] MEDS: levofloxacin-dextrose 5 % 500 MG/100 ML PREMIX 100 MG IV (07:00)
--- NOTE | 2022-04-24 08:29 | P.OP_ITS ---
Operative Report Date of procedure: April 24, 2022 Pre-op diagnosis: Preop Diagnosis Right inguinal hernia Post-op findings: The same and of the same and umbilical hernia Procedure done: Laparoscopic right inguinal hernia repair with mesh placement and excision of lipoma of the cord. laparoscopic umbilical hernia repair Implants: 3D mesh Specimens removed/disposition: Umbilical hernia sac and contents Lipoma of the right cord Surgeon: Catalino Higgins MD Government Affairs Specialist: Surgical techmoses Couch and Jazmin Circulating nurses Melinda Mallory and Nya SANTIAGO Anesthesia: General (SUPER[employer] CELL[employer] Page) Estimated blood loss (mL): 5 IV fluids (mL): 900 Urine output (mL): 200 Procedure: Patient was identified in the holding area and the right groin was marked by me,patient was transferred to the operating room where he was placed in supine position, with both arms were tucked, antibiotic was given with induction, endotracheal tube was placed per anesthesia, Watson catheter was inserted by the circulating nurse and revealed clear urine, prep and drape of the abdomen was done under the usual sterile technique as well as the scrotal area. Time-out was done verifying the patient's name/date of /planned procedure destination after the procedure, all were in agreement. SCDs confirmed to be functioning, preoperative antibiotics administered per protocol, and beta yuridia protocol was confirmed. A vertical skin incision of 1.2 cm was made with 11 blade knife through the supra umbilicus , incision was carried down to the subcutaneous tissue and deepened to identify the anterior fascia, umbilical hernia was appreciated and that was dissected and a right angle clamp was applied and suture tie was placed in the residual omental content was excised and sent for permanent pathology. The umbilical hernia defect was less than an inch in diameter. Following that two stay sutures were applied to the fascia, and safe entrance to the abdominal cavity was achieved, a Reyna trocar technique safe entry to the abdominal cavity was achieved verified by using 10 mm zero degree laparoscopy, switched to a 30 degrees scope,low flow followed by a higher flow of CO2 gas up to 15 mmHg. There was no evidence of injury to intra-abdominal structures from the port entry, attention was deviated to both groins, there was a large direct hernia defect with herniation of peritoneum and preperitoneal fat was noted on the right side, two 5 mm ports were placed on the right and left lateral aspect of the abdomen slightly above the level of the umbilicus, under direct visualization, local Exparel was injected at all trocar sites prior to incisions. The peritoneum above the level of the iliopubic tract was incised to the right of the midline and dissection was performed to create a preperitoneal space medial to lateral aspect up to anterior superior iliac spine on the right side. Dissection was continued onto the medial aspect and the right spermatic was identified, there was evidence of indirect inguinal hernia .the sac was dissected. As it applied medial to the right inferior epigastric vessels/ dissection was performed to clear the space lateral to the spermatic cord and dorsomedial to it, the hernia sac was reduced and retracted far back, so there was an evidence of a lipoma of the cord that was excised and sent for permanent pathology. Then a large right 3-D mesh was rolled and placed into the abdominal cavity through the Reyna port, after the mesh was introduced it was positioned to lie in the myopectineal orifice and the mesh was unrolled and this covered the entire my myope pectineal orifice. On the lateral aspect of the mesh extended up to the anterior superior iliac spine on the medial aspect the mesh crossed the midline onto the left side, then using absorbable tacks, placed above the iliopubic tract onto the rectus abdominis muscle on the medial aspect and also to the lateral abdominal wall superomedial to the sacroiliac spine, then the mesh was also anchored to the pubis and the Chad's ligament inferiorly. The peritoneal leaflets were then brought together to cover the mesh and isolated from the other viscera, extra tacks were used to secure the peritoneum in good position. Final look demonstrated good hemostasis and the mesh in good position A total of 20 mL Exparel 40 ml Normal saline 20 ml bupivacaine 0.25% were injected at the remaining of the tacks site and trocar sites as well Final look demonstrated good hemostasis.Then the fascia on the supra umbilical fascial defect was closed using #1 PDS sutures under direct visualization using fascial closure device Caio Andres.All ports were removed,then the abdomen was desufflated.All skin incisions were closed with 4-0 Monocryl subcuticular suture and Dermabond was applied. The patient tolerated the procedure well, Watson catheter was taken out followed by application of scrotal support, patient extubated and was transferred to the recovery area in stable condition. All counts of instruments, needles and sponges were completed I was present for the whole entire procedure
[2022-04-24] MEDS: HYDROcodone-acetaminophen 5-325 mg Tablet 1 TAB PO (09:49)
--- NOTE | 2022-04-24 16:00 | ANE.PACU2 ---
Inpatient post-anesthesia follow up: Airway intact: Yes Vital signs: Temperature 97.2 F Pulse Rate 51 Respiratory Rate 16 Blood Pressure 124/89 Pulse Oximetry 97 Oxygen Delivery Me thod Room Air Oxygen Flow Rate 6 Fraction of Inspir ed Oxygen Hydration adequate: Yes Nausea and vomiting: No Pain level: 3 Mental status: Baseline
== END 2022-04-24 10:06 | disposition home or self-care (01) ==
PROVIDERS: Visit Provider Surgery
PROC: (CPT 49650; principal; 2022-04-24 07:00)
DX: K40.90 Unilateral inguinal hernia, without obstruction or gangrene, not specified as recurrent (principal); D17.6 Benign lipomatous neoplasm of spermatic cord; Z79.82 Long term (current) use of aspirin; Z87.891 Personal history of nicotine dependence; Z82.49 Family history of ischemic heart disease and other diseases of the circulatory system
CPT/HCPCS: 49650; 51702; 88302; 88304; C1781; J0330; J1100; J1644; J1956; J2250; J2370; J2405; J2704; J2710; J3010; J3490; J7030

== ENCOUNTER → 2022-05-17 14:41 | Outpatient (BNVA) | payer MEDICARE, SELFPAY | PROVIDERS: Visit Provider Surgery | DX: Z09 Encounter for follow-up examination after completed treatment for conditions other than malignant neoplasm (principal) | CPT/HCPCS: 99024 ==

== ENCOUNTER 2023-06-21 13:15 | Outpatient (CLI) | payer MEDICARE, SELFPAY ==
--- NOTE | 2023-06-21 13:33 | XR_ITS ---
WS: [id number] XR wrist LT min 3V* [id number] REASON FOR EXAM: LEFT WRIST PAIN/RADIAL STYLOID TENOSYNOVITIS FINDINGS: No fracture or focal bone lesion. Joint spaces of the left wrist are intact and relatively well preserved. No soft tissue abnormality. Significant osteoarthritis of the carpometacarpal joint of the thumb. IMPRESSION: Osteoarthritis of the thumb.
== END 2023-06-21 13:16 | disposition home or self-care (01) ==
PROVIDERS: PCP Nurse Practitioner Family; Visit Provider Nurse Practitioner Family
DX: M18.12 Unilateral primary osteoarthritis of first carpometacarpal joint, left hand (principal); M65.4 Radial styloid tenosynovitis [de Quervain]
CPT/HCPCS: 73110